=== PATIENT | male | born 1965 | race Asian ===

== ENCOUNTER 2017-02-02 06:39 | Day surgery (SDC) | payer MEDICAID ==
[2017-02-02] MEDS ORDERED: Sodium Chloride 0.9% 10 ML Syringe FLUSH PRN (06:45)
[2017-02-02] MEDS ORDERED: Lactated Ringers 1,000 ML IV SCH (06:45)
[2017-02-02] MEDS ORDERED: Ondansetron 4 MG/2 ML SDV IVPUSH ONE (07:55)
[2017-02-02] MEDS ORDERED: Propofol 200 MG/20 ML SDV IV ONE (07:55)
[2017-02-02] MEDS ORDERED: Simethicone Drops 40 MG/0.6 ML 30 ML Bottle ONE (08:11)
--- NOTE | 2017-02-02 08:25 | PCM.OPNOTE ---
- General Post-Op/Procedure Note Date of Surgery/Procedure: 02/02/17 Operative Procedure(s): c scope with bx Findings: colon polyps ascending colon Pre Op Diagnosis: screening Post-Op Diagnosis: ascending colon polyp Anesthesia Technique: MAC Primary Surgeon: Hero Acevedo Anesthesia Provider: Zackary Brewer Pathology: ascending colon polyp Complications: None Condition: Good Free Text/Narrative:: see dictation
--- NOTE | 2017-02-02 09:14 | OR ---
DATE OF OPERATION: 02/02/2017 SURGEON: Hero Acevedo MD PROCEDURE PERFORMED: Colonoscopy with hot loop snare and cold forceps biopsy. PREOPERATIVE DIAGNOSIS: Need for screening C-scope. POSTOPERATIVE DIAGNOSIS: Polyps, ascending colon. INDICATIONS FOR PROCEDURE: This is a 51-year-old male, who presents for his initial screening colonoscopy. He was offered and accepted same. DESCRIPTION OF OPERATION: After an excellent IV sedation was administered, digital rectal exam was performed. No marked abnormality was noted. The flexible colonoscope was inserted and advanced to the cecum without difficulty. Prep was excellent. The following findings were noted. At the ascending colon, there was cluster of what appeared to be polyps, hot loop snare and cold forceps biopsies were used to take loss control representative biopsies. Transverse colon, unremarkable. Descending colon, unremarkable. Sigmoid and rectum, unremarkable. Colon was deflated. The scope was removed. The patient tolerated the procedure well and was taken to the recovery room in good condition. /[id number] /PEARLL
== END 2017-02-02 09:35 | disposition home or self-care (01) ==
LOC: FB.SDS 06:39
PROVIDERS: ATTEND Surgery
DX: Z12.11 Encounter for screening for malignant neoplasm of colon (principal); K63.5 Polyp of colon; I10 Essential (primary) hypertension; E11.9 Type 2 diabetes mellitus without complications; E78.5 Hyperlipidemia, unspecified; Z79.899 Other long term (current) drug therapy
CPT/HCPCS: 45380; 45385; 82962; 88305; A9270; J2405; J2704; J7120